=== PATIENT | female | born 1965 | race Hispanic/Latino ===

== ENCOUNTER 2024-07-10 06:58 | Day surgery (SDC) | payer OTHER ==
[~2024-07-10] VITALS: Ht 157.5 cm; Wt 59.0 kg
[2024-07-10] VITALS (12 sets, daily range): BP systolic 81–163; BP diastolic 44–81; PULSE 61–76; RESP 16–20
[~2024-07-10 06:58] MED LIST: 0.9%NACL 1000ML 1,000 ML IV ONE
[2024-07-10] MEDS ORDERED: MINO10TA3 PO (07:20)
[2024-07-10] MEDS ORDERED: FERR-63 PO (07:20)
[2024-07-10] MEDS ORDERED: OMEP20TA20 PO (07:20)
[2024-07-10] MEDS ORDERED: FOLI0.8T3 PO (07:20)
[2024-07-10] MEDS ORDERED: CITA20TA17 PO (07:20)
[2024-07-10] MEDS ORDERED: ATOR10 PO (07:20)
[2024-07-10] MEDS ORDERED: LEVO25CA4 PO (07:20)
[2024-07-10] MEDS ORDERED: cefTRIAXone 1G VIAL ONE (07:26)
[2024-07-10] MEDS ORDERED: proPOFol 10 MG/ML 20ML VIAL IV ONE ×2 (08:06→08:07)
[2024-07-10] MEDS ORDERED: LIDOCAINE PF 100MG/5ML (2%) SYRINGE 5ML ONE (08:07)
== END 2024-07-10 09:20 | disposition home or self-care (01) ==
LOC: DAH 06:58 → ENDO 06:58 → EDSTATUS 08:00 → ENDO 09:20
PROVIDERS: ATTEND Surgery
DX: K21.9 Gastro-esophageal reflux disease without esophagitis (principal); K29.50 Unspecified chronic gastritis without bleeding; K31.89 Other diseases of stomach and duodenum; Z98.890 Other specified postprocedural states
CPT/HCPCS: 43239; 88305; 88312; J7030; J2001; J0696; J2704 ×2; A4620; A4215 ×3; A4223; A4222; A4221; A4663; A4216; A4606; J3490